=== PATIENT | male | born 1990 | race Two or more races ===

== ENCOUNTER 2025-04-03 19:59 | Emergency (ER) | payer OTHER ==
[~2025-04-03] VITALS: Ht 170.2 cm; Wt 81.6 kg
[2025-04-04] MEDS ORDERED: KETOROLAC TROMETHAMINE 30 MG VIAL IV STA (00:36)
[2025-04-04] MEDS ORDERED: ORPHENADRINE CITRATE 30 MG/ML AMPUL IV STA (00:36)
[2025-04-04] MEDS ORDERED: ORPHENADRINE CITRATE 30 MG/ML AMPUL ONE (00:39)
[2025-04-04] MEDS ORDERED: KETOROLAC TROMETHAMINE 30 MG VIAL ONE ×2 (00:39)
[2025-04-04] MEDS ORDERED: 0.9 % SODIUM CHLORIDE 1,000 ML IV ONE (00:45)
[2025-04-04 01:13] LABS: BASO % 0.3 % (0.1-1.2); EOS # 0.03 (0.04-0.54); EOS % 0.3 % (0.7-7.0); HEMATOCRIT 45.2 % (40.1-51.0); HEMOGLOBIN 15.2 g/dL (13.7-17.5); LYMPH # 2.11 (1.18-3.74); LYMPH % 21.8 % (19.3-53.1); MEAN CORPUSCULAR HEMOGLOBIN 30.5 pg (25.6-32.2); MONO % 5.2 % (4.7-12.5); NEUT % 72.2 % (34.0-71.1); PLATELET COUNT 294 K/uL (163-369); RED BLOOD COUNT 4.99 M/uL (4.63-6.08)
[2025-04-04 01:33] LABS: URINE APPEARANCE Clear; URINE BILIRRUBIN Negative (NEGATIVE); URINE BLOOD Negative; URINE COLOR Yellow; URINE GLUCOSE Negative (NEGATIVE); URINE KETONE Negative (NEGATIVE); URINE LEUKOCYTE Negative; URINE NITRATE Negative; URINE PROTEIN Negative (NEGATIVE); URINE UROBILINOGEN 0.2 E.U./dl
[2025-04-04 01:50] LABS: URINE BACTERIA 2.4 uL (0.0-1933); URINE EPITHELIAL CELLS 0.3 uL (0.0-38.8); URINE RBC 1.3 uL (0.0-20.8); URINE WBC 0.7 uL (0.0-23.2)
[2025-04-04 01:52] LABS: ALBUMIN 4.1 gm/dL (3.4-5.0); BILIRUBIN TOTAL 0.5 mg/dL (0.3-1.2); CALCIUM 8.6 mg/dL (8.5-10.1); CREATININE SERUM 1.03 mg/dL (0.70-1.30); GFR 82.67; GLOBULINA 3.4 G/DL (2.4-3.5); POTASSIUM 4.47 mEq/L (3.5-5.1); TOTAL PROTEIN 7.5 gm/dL (6.4-8.2)
== END 2025-04-04 04:56 | disposition home or self-care (01) ==
LOC: ER 20:14
PROVIDERS: General Practice
DX: R53.83 Other fatigue (principal)

== ENCOUNTER 2025-08-23 02:09 | Emergency (ER) | payer OTHER ==
[~2025-08-23] VITALS: Ht 172.7 cm; Wt 81.6 kg
[2025-08-23] MEDS ORDERED: PEPCID40 MG PO (04:54)
== END 2025-08-23 04:59 | disposition home or self-care (01) ==
LOC: ER 02:10
DX: R00.2 Palpitations (principal)